=== PATIENT | female | born 1955 | race Caucasian/White ===

== ENCOUNTER 2023-01-19 10:22 | Outpatient (OUT) | payer MEDICARE, SELFPAY ==
[2023-01-19 11:12] LABS: Alanine Aminotransferase 45 U/L (14-59); Albumin Globulin Ratio 0.9; Alkaline Phosphatase 94 U/L (46-116); Aspartate Amino Transferase 28 U/L (15-37); BUN Creatinine Ratio 11.8; Bilirubin Total 0.5 mg/dL (0.2-1.0); Calcium 9.4 mg/dL (8.5-10.1); Carbon Dioxide 30.8 mmol/L (21.0-32.0); Chloride 102 mmol/L (98-107); Chol HDL Ratio 3.8; Cholesterol 210 mg/dL (<=200); Estimated GFR (African America >60 (>=60); Estimated GFR (Non-African Ame >60 (>=60); Globulin 4.4 g/dL; Glucose 104 mg/dL (74-106); HDL Cholesterol 56 mg/dL (40-60); Potassium 3.8 mmol/L (3.5-5.1); Sodium 140 mmol/L (136-145); Total Protein 8.4 g/dL (6.4-8.2); Triglycerides 116 mg/dL (<=150); VLDL CHOLESTEROL 23.2 mg/dL
[2023-01-19 11:20] LABS: Basophils Absolute Auto 0.1 10^3/uL (0.0-0.1); Basophils Percent Auto 0.9 % (0.2-2.0); Eosinophils Absolute Auto 0.1 10^3/uL (0.0-0.7); Eosinophils Percent Auto 1.4 % (0.9-7.0); Hematocrit 46.5 % (36.0-48.0); Hemoglobin 15.1 g/dL (12.0-16.0); Immature Granulocytes Abs Auto 0.04 10^3/uL (0.00-0.03); Immature Granulocytes Pct Auto 0.6 % (0.0-0.5); Lymphocytes Absolute Auto 2.1 10^3/uL (1.2-3.8); Lymphocytes Percent Auto 29.6 % (20.5-60.0); Mean Corpuscular HGB Conc 32.5 g/dL (29.9-35.2); Mean Corpuscular Hemoglobin 29.2 pg (26.7-34.0); Mean Corpuscular Volume 89.8 fL (81.0-99.0); Microalbumin Urine Random <1.3 mg/dL (<=30.0); Monocytes Absolute Auto 0.4 10^3/uL (0.3-0.8); Monocytes Percent Auto 5.6 % (1.7-12.0); Neutrophils Absolute Auto 4.4 10^3/uL (1.4-6.5); Neutrophils Percent Auto 61.9 % (43.0-75.0); Platelet Count 296 10^3/uL (150-450); Red Blood Count 5.18 10^6/uL (4.20-5.40); Red Cell Distribution Width 12.9 % (11.0-15.0)
== END 2023-01-19 10:23 | disposition home or self-care (01) ==
LOC: LAB 10:23
PROVIDERS: PCP Family Medicine; Visit Provider Family Medicine
DX: I10 Essential (primary) hypertension (principal)
CPT/HCPCS: 36415; 80053; 80061; 82043; 85025

== ENCOUNTER 2024-03-31 09:20 | Outpatient (OUT) | payer MEDICARE, SELFPAY ==
--- NOTE | 2024-03-31 09:26 | US_ITS ---
[address] [address] Patient Name: MANUEL BLAND MRN: [id number] date: 1955 Sex: F Assigned Patient Location: Current Patient Location: Accession/Order Number: [id number] Exam Date: 03/31/2024 09:30 Report Date: 04/01/2024 09:52 At the request of: DOMINIC VILLARREAL Procedure: US carotid duplex BI EXAMINATION: US carotid duplex BI HISTORY: Stenosis of right carotid artery COMPARISON: No relevant comparison available. TECHNIQUE: Duplex Doppler ultrasound analysis of carotid and vertebral arteries. . Bilateral carotid arterial duplex examination was performed using B-mode, color flow and spectral analysis. Carotid stenosis is reported according to validated velocity parameters, similar to NASCET criteria. FINDINGS: RIGHT CAROTID ARTERY : Mild plaque within distal common carotid artery, bulb, proximal internal carotid artery. Subclavian: 72.54 cm/s / 0 cm/s CCA: Prox: 67.67 cm/s / 14.37 cm/s Mid: 75.75 cm/s / 14.37 cm/s Distal: 78.97 cm/s / 17.60 cm/s BULB: 78.94 cm/s / 15.98 cm/s ICA: Prox: 94.41 cm/s / 27.40 cm/s Mid: 102.26 cm/s / 15.57 cm/s Distal: 76.65 cm/s / 27.39 cm/s ECA: 104.21 cm/s / 13.59 cm/s VERTEBRAL: 29.57 cm/s / 6.02 cm/s ICA/CCA ratio: 1.3 LEFT CAROTID ARTERY: Moderate atherosclerotic plaque within bulb and proximal ICA. Subclavian: 141.8 cm/s / 0 cm/s CCA: Prox: 64.57 cm/s / 15.40 cm/s Mid: 72.34 cm/s / 20.58 cm/s Distal: 63.26 cm/s / 17.98 cm/s BULB: 64.55 cm/s / 14.10 cm/s ICA: Prox: 56.79 cm/s / 19.28 cm/s Mid: 67.12 cm/s / 21.86 cm/s Distal: 72.29 cm/s / 21.86 cm/s ECA: 133.43 cm/s / 16.44 cm/s VERTEBRAL: 56.81 cm/s / 16.69 cm/s ICA/CCA ratio: 1.0 US/US carotid duplex BI IMPRESSION: 1. 0-49% flow stenosis within the right left carotid arteries. 2. Atherosclerotic disease; mild on right, moderate on left. Spectral Doppler US Thresholds Stenosis (%) PSV (cm/sec) VICA/VCCA 0-49 <150 <2.5 50-69 150-225 2.5-4.0 >70 >225 >4.0 Electronically authenticated by: TRAVIS GUTIERREZ Date: 04/01/2024 09:52
== END 2024-03-31 09:21 | disposition home or self-care (01) ==
LOC: US 09:20
PROVIDERS: PCP Family Medicine; Visit Provider Family Medicine
DX: I65.21 Occlusion and stenosis of right carotid artery (principal)
CPT/HCPCS: 93880